=== PATIENT | female | born 1975 | race Caucasian/White ===

== ENCOUNTER 2018-06-21 16:01 | Outpatient (CLI) | payer BC | END 2018-06-21 16:02 | disposition home or self-care (01) | LOC: BICMAMMO 16:01 | PROVIDERS: ATTEND Obstetrics & Gynecology | DX: Z12.31 Encounter for screening mammogram for malignant neoplasm of breast (principal); Z80.3 Family history of malignant neoplasm of breast | CPT/HCPCS: 77063; 77067 ==

== ENCOUNTER 2019-12-21 13:59 | Outpatient (CLI) | payer BC ==
--- NOTE | 2019-12-21 16:37 | ULT ---
THYROID ULTRASOUND: 12/21/19 INDICATIONS: Thyroid nodule. No comparison. Both lobes of the thyroid are enlarged and very heterogeneous. A defined mass or nodule is not deline ated. Right lobe measures 5.0 x 3.1 x 1.7 cm. Left lobe measures 5.2 x 2.0 x 1.8 cm. IMPRESSION: Both lobes are enlarged and heterogeneous. Thyroiditis or diffuse goiter are considerations. POS: [facility]W
== END 2019-12-21 14:00 | disposition home or self-care (01) ==
LOC: BICULT 13:59
PROVIDERS: ATTEND Family Medicine
DX: E04.1 Nontoxic single thyroid nodule (principal)
CPT/HCPCS: 76536

== ENCOUNTER 2020-06-17 11:30 | Outpatient (CLI) | payer BC ==
--- NOTE | 2020-06-17 12:12 | RAD ---
PA AND LATERAL CHEST: HISTORY: Chest pain x 2 days, wheezing. COMPARISON: 03/09/2016 study. FINDINGS: Heart size and mediastinum are within normal limits. The lungs are clear of any definitive infiltrat james process. No significant bony findings. IMPRESSION: No active intrathoracic disease. POS: JOSE RAFAEL
== END 2020-06-17 11:31 | disposition home or self-care (01) ==
LOC: BICRAD 11:30
PROVIDERS: ATTEND Family Medicine
DX: R91.8 Other nonspecific abnormal finding of lung field (principal); Z95.810 Presence of automatic (implantable) cardiac defibrillator
CPT/HCPCS: 71046

== ENCOUNTER 2020-11-22 08:09 | Outpatient (CLI) | payer BC | END 2020-11-22 08:10 | disposition home or self-care (01) | LOC: ULT 08:09 | PROVIDERS: ATTEND Internal Medicine Gastroenterology | DX: R10.9 Unspecified abdominal pain (principal); K82.4 Cholesterolosis of gallbladder | CPT/HCPCS: 93975 ==

== ENCOUNTER 2021-04-04 07:57 | Outpatient (CLI) | payer BC | END 2021-04-04 07:58 | disposition home or self-care (01) | LOC: BICRAD 07:57 | PROVIDERS: ATTEND Family Medicine | DX: M54.50 Low back pain, unspecified (principal); M47.817 Spondylosis without myelopathy or radiculopathy, lumbosacral region | CPT/HCPCS: 72100 ==

== ENCOUNTER 2022-12-21 13:54 | Outpatient (CLI) | payer BC | END 2022-12-21 13:55 | disposition home or self-care (01) | LOC: BICMRI 13:54 | PROVIDERS: ATTEND Family Medicine | DX: M50.122 Cervical disc disorder at C5-C6 level with radiculopathy (principal); R20.0 Anesthesia of skin; R20.2 Paresthesia of skin | CPT/HCPCS: 72141 ==

== ENCOUNTER 2024-06-14 15:58 | Outpatient (CLI) | payer BC | END 2024-06-14 15:59 | disposition home or self-care (01) | LOC: BICULT 15:58 | PROVIDERS: ATTEND Family Medicine | DX: E04.9 Nontoxic goiter, unspecified (principal) | CPT/HCPCS: 76536 ==

== ENCOUNTER 2024-12-13 13:55 | Outpatient (CLI) | payer BC | END 2024-12-13 13:56 | disposition home or self-care (01) | LOC: ULT 13:55 | PROVIDERS: ATTEND Family Medicine | DX: E06.3 Autoimmune thyroiditis (principal); E01.0 Iodine-deficiency related diffuse (endemic) goiter | CPT/HCPCS: 76536 ==